=== PATIENT | female | born 1970 | race Native Hawaiian/Other Pacific Islander ===

== ENCOUNTER 2016-11-21 15:27 | Outpatient (CLI) | payer BC | END 2016-11-21 19:05 | disposition home or self-care (01) | LOC: MAMMO 15:27 | DX: Z12.31 Encounter for screening mammogram for malignant neoplasm of breast (principal) ==

== ENCOUNTER 2017-03-27 17:43 | Emergency (ER) | payer BC ==
[~2017-03-27] VITALS: Ht 162.6 cm; Wt 117.9 kg
[2017-03-27 19:16] LABS: PLATELET COUNT 330 K/uL (152-353)
[2017-03-27 19:21] LABS: POTASSIUM 3.8 mmol/L (3.6-5.2); SODIUM 137 mmol/L (136-145)
== END 2017-03-27 20:00 | disposition home or self-care (01) ==
LOC: ED 17:43
DX: K29.70 Gastritis, unspecified, without bleeding (principal); R10.13 Epigastric pain
CPT/HCPCS: 36415; 80053; 82150; 82550; 83690; 84484; 85027; 85379; 86318; 93005; 99283

== ENCOUNTER 2017-04-19 09:17 | Outpatient (CLI) | payer BC | END 2017-04-19 12:00 | disposition home or self-care (01) | LOC: NM 09:17 | DX: R10.11 Right upper quadrant pain (principal) | CPT/HCPCS: A9537 ==

== ENCOUNTER 2017-12-27 08:08 | Outpatient (CLI) | payer BC | END 2017-12-27 19:28 | disposition home or self-care (01) | LOC: MAMMO 08:08 | DX: Z12.31 Encounter for screening mammogram for malignant neoplasm of breast (principal) ==

== ENCOUNTER 2019-08-07 08:31 | Outpatient (CLI) | payer BC | END 2019-08-07 21:35 | disposition home or self-care (01) | LOC: LABW 08:31 | DX: Z01.810 Encounter for preprocedural cardiovascular examination (principal); Z01.811 Encounter for preprocedural respiratory examination; Z01.812 Encounter for preprocedural laboratory examination | CPT/HCPCS: 36415; 84702 ==

== ENCOUNTER 2020-03-05 08:49 | Outpatient (CLI) | payer BC | END 2020-03-05 19:34 | disposition home or self-care (01) | LOC: US 08:49 | PROVIDERS: ATTEND Podiatrist | DX: M79.662 Pain in left lower leg (principal) ==

== ENCOUNTER 2020-06-10 08:13 | Outpatient (CLI) | payer BC | END 2020-06-10 19:21 | disposition home or self-care (01) | LOC: MAMMO 08:13 | PROVIDERS: ATTEND Nurse Practitioner Family | DX: Z12.31 Encounter for screening mammogram for malignant neoplasm of breast (principal) ==

== ENCOUNTER 2020-10-21 07:20 | Outpatient (CLI) | payer BC | END 2020-10-21 19:07 | disposition home or self-care (01) | LOC: RAD 07:20 | PROVIDERS: ATTEND Nurse Practitioner | DX: Z01.818 Encounter for other preprocedural examination (principal) ==

== ENCOUNTER 2021-06-10 08:26 | Outpatient (CLI) | payer BC | END 2021-06-10 18:52 | disposition home or self-care (01) | LOC: MAMMO 08:26 | PROVIDERS: ATTEND Nurse Practitioner Family | DX: Z12.31 Encounter for screening mammogram for malignant neoplasm of breast (principal) ==

== ENCOUNTER 2021-12-22 09:42 | Outpatient (CLI) | payer BC ==
[2021-12-22 10:53] LABS: POTASSIUM 3.4 mmol/L (3.6-5.2)
[2021-12-22 11:00] LABS: PLATELET COUNT 306 K/uL (152-353)
== END 2021-12-22 19:50 | disposition home or self-care (01) ==
LOC: LABW 09:42
PROVIDERS: ATTEND Nurse Practitioner Family
DX: Z01.818 Encounter for other preprocedural examination (principal); K43.2 Incisional hernia without obstruction or gangrene; I10 Essential (primary) hypertension
CPT/HCPCS: 36415; 80048; 85027; 93005